=== PATIENT | female | born 1935 | race Caucasian/White ===

== ENCOUNTER 2018-06-15 08:27 | Day surgery (SDC) | payer MEDICARE, BC ==
[~2018-06-15] VITALS: Ht 162.6 cm; Wt 52.0 kg
[2018-06-15] VITALS (9 sets, daily range): BP systolic 121–158; BP diastolic 62–94; PULSE 70–86; TEMP 98.4
[~2018-06-15 08:27] MED LIST: ASPIRIN 81M81 MG/TA2 PO; ATACAND8 MG PO; BROVANA15 MCG/2 M IH; CRESTOR 10MG10 MG PO; DESITIN RAPID REL13% TP; LEVOXYL0.088 MG PO; METAMUCIL MUL0.52 GM PO; METAMUCIL3.4 GM/DOS PO; NITROSTAT0.3 MG SL; NORCO 325 MG-51 TAB PO; PEPCID 20MG TAB20 MG PO; PULMICORT0.5 MG/2 M IH; RT SPIRIVA18 MCG IH; SYSTANE 0.4%-0.1 SOL OP; TOPROL XL 25MG25 MG PO; TYLENOL 325MG325 MG PO
[2018-06-15 09:28] LABS: HEMOGLOBIN 13.9 g/dl (12.5-16.0); MEAN CELL VOLUME 100 fl (80.0-100.0); MEAN CORPUSCULAR HEMOGLOBIN 32 pg (27.0-31.0); MEAN CORPUSCULAR HGB CONC 32 g/dl (33.0-37.0); MEAN PLATELET VOLUME 11.7 fl (7.4-10.4); PLATELET COUNT 163 K/mm3 (130-400); REDCELL DISTRIBUTION WIDTH-CV 13.8 % (11.5-14.5)
[2018-06-15 09:37] LABS: CALCIUM 10.1 mg/dL (8.4-10.2); CREATININE, serum 0.66 mg/dL (0.52-1.25); INR 1.1 (0.8-3.0); POTASSIUM 4.2 mmol/L (3.4-5.0); PROTHROMBIN TIME 12.9 SECONDS (9.7-12.8)
[2018-06-15] MEDS ORDERED: CLEOCIN HCL300 MG PO (13:08)
== END 2018-06-15 14:00 | disposition home or self-care (01) ==
LOC: COL.CAR 08:27
PROVIDERS: Internal Medicine Cardiovascular Disease
DX: Z45.02 Encounter for adjustment and management of automatic implantable cardiac defibrillator (principal); I25.5 Ischemic cardiomyopathy; I25.10 Atherosclerotic heart disease of native coronary artery without angina pectoris; I47.2 Ventricular tachycardia; Z95.5 Presence of coronary angioplasty implant and graft; Z88.0 Allergy status to penicillin; Z88.8 Allergy status to other drugs, medicaments and biological substances; Z91.018 Allergy to other foods; Z88.2 Allergy status to sulfonamides; Z88.5 Allergy status to narcotic agent; Z91.013 Allergy to seafood; Z87.891 Personal history of nicotine dependence
CPT/HCPCS: J2250; J3010; J3370; J7030; J7050